=== PATIENT | male | born 2005 | race Hispanic/Latino ===

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

== ENCOUNTER 2025-02-24 23:11 | Emergency (ER) | payer SELFPAY ==
[~2025-02-24] VITALS: Ht 172.7 cm; Wt 86.2 kg
[2025-02-24 23:13] VITALS: BP 128/73; TEMP 102.5
[2025-02-24] MEDS: ibuPROFEN 400 MG TABLET PO ONE (23:34)
[2025-02-24] MEDS: acetaMINOPHEN 500 MG TABLET PO ONE (23:35)
--- NOTE | 2025-02-24 23:38 | NUR ---
SPOKE WITH RESPIRATORY THEY ARE AWARE OF PENDING NEB TREATMENT IN FAST TRACK EXT [id number]
[2025-02-24 23:47] VITALS: PULSE 111; RESP 18
[2025-02-24] MEDS: IpraTROPium/alBUTERol SULFATE 3 ML SOLUTION IH ONE (23:47)
--- NOTE | 2025-02-24 23:47 | NUR ---
RT BEDSIDE FOR NEB TREATMENT
--- NOTE | 2025-02-25 00:02 | HMCIMG ---
CHEST 1VW HISTORY: Shortness of breath COMPARISON: None FINDINGS: A frontal projection of the chest was obtained. No acute pulmonary infiltrates is seen. The heart is normal in size. Prominent interstitial markings are seen. No evidence of aortic calcification is seen. IMPRESSION: 1. No acute pulmonary infiltrate is seen.
[2025-02-25 00:12] LABS: SARS-CoV-2, RNA, NAAT NEGATIVE SARS CoV-2 (NEGATIVE)
[2025-02-25 00:14] LABS: RAPID GROUP A STREP negative (NEGATIVE)
[2025-02-25 00:20] LABS: INFLUENZA TYPE B Negative For Type B (NEGATIVE)
[2025-02-25 00:25] LABS: INFLUENZA TYPE A Positive For Type A (NEGATIVE)
[2025-02-25] MEDS ORDERED: OSEL75 PO (00:34)
--- NOTE | 2025-02-25 00:34 | ERN ---
General Chief Complaint: Cough Stated Complaint: C/O COUGH,, CHILLS, HEADACHE,SORE THROAT Time Seen by MD: 23:14 Time Seen by Midlevel: 23:14 Source: patient History of Present Illness Initial Comments Patient is a 19-year-old male with a past medical history presenting to the emergency department for evaluation of flu-like symptoms that have been ongoing for three days. Symptoms consist of fever, cough, and a runny nose. No other symptoms Allergies: Coded Allergies: ceftriaxone (Unverified Allergy, Unknown, 09/08/19) Home Meds Active Scripts Oseltamivir Phosphate (Tamiflu) 75 Mg Cap, 75 MG PO BID for 5 Days, #10 CAP Prov:RANDAL SINCLAIR 02/25/25 Past Medical History Past Medical History: Asthma Past Surgical History: None ROS Dictation CONSTITUTIONAL: Negative except for HPI HEAD/FACE: Negative except for HPI EENT: Negative except for HPI RESPIRATORY: Negative except for HPI GASTROINTESTINAL/ABDOMINAL: Negative except for HPI GENITOURINARY: Negative except for HPI MUSCULOSKELETAL: Negative except for HPI INTEGUMENTARY: Negative except for HPI NEUROLOGICAL/PSYCH: Negative except for HPI HEMATOLOGIC/LYMPHATIC: Negative except for HPI All Systems Negative, Except as noted above. 13 point review of systems assessed and all negative except for above. Physical Exam Physical Exam Dictation Vital Signs reviewed General Appearance: Alert, oriented x 3, no acute distress, well developed, nourished. Head and Face: non-traumatic. Eyes: PERRL, pink conjunctivas, eyelid no trauma, anterior chamber with arcus senilis. Ears: Pinnas intact and no signs of trauma or erythema ear canals clear and no discharge TM no erythema Nose: No discharge, no bleeding. Oropharynx: Mouth normal, tongue pink, Erythema to the posterior oropharynx, tonsils no exudates, no abscesses noted, mucous membrane moist Neck: Supple, non-tender, no thyromegaly, no masses, no JVD, no bruits Breast:Deferred Chest:No tenderness, no crepitus, no paradoxical movement, no retractions Lungs:Clear, well-ventilated, symmetric, no rales, no wheezing, no rhonchi, no stridor, good breath sounds bilaterally Heart: Regular rate, regular rhythm, no murmur, no gallops Vascular: no peripheral edema, Abdomen: Soft, positive bowel sounds, nondistended, no guarding, nontender, no rebound, no masses no hepatomegaly, no splenomegaly, no Mckeon's sign, no hernias. Rectal: Deferred Genital: Deferred Neurological: Normal speech, motor function intact, sensory function intact Musculoskeletal: Neck nontender, full range of motion, back nontender, full range of motion, Extremities: nontender, full range of motion Skin: Color pink, dry, no turgor, no rash, no lacerations, no abrasions, no contusions. Lymphatic: Deferred Results Laboratory and Microbiology Lab and Micro Result Laboratory Tests Test 02/24/25 23:16 Influenza Type A Antigen Positive For Type A Influenza Type B Antigen Negative For Type B SARS-CoV-2, RNA, NAAT NEGATIVE SARS CoV-2 Group A Streptococcus Rapid negative (NEGATIVE) Labs Reviewed?: Yes MDM MDM: Differential diagnosis: Pneumonia, viral syndrome, upper respiratory infection There are no social concerns with this patient. Prescription drug management Prescriptions will include: Tamiflu Medical management and examination interpretation discussions were had by me with other qualified healthcare professionals as indicated for the patient's care. ED Course Orders Procedure Category Date Status Time Covid Rna Naat LAB 02/24/25 Complete 23:28 Influenza Type A & B, LAB 02/24/25 Complete Rapid 23:28 Rapid (Group A Strep) LAB 02/24/25 Complete 23:28 Chest 1vw RAD 02/24/25 Resulted 23:28 Ipratropium/Albuterol PHA 02/24/25 Complete Neb (Duoneb) 23:30 Acetaminophen 500mg PHA 02/24/25 Complete Tab (Tylenol 500mg T 23:30 Ibuprofen (Motrin) PHA 02/24/25 Complete 23:30 Current Medications Medications (Trade) Dose Ordered Sig/Christina Route PRN Reason Start Time Stop Time Status Last Admin Dose Admin Acetaminophen (TYLenol 500MG TAB) 1,000 mg ONCE ONCE PO 02/24/25 23:30 02/24/25 23:31 DC 02/24/25 23:35 Albuterol (DUOneb) 1 UDVIAL ONCE ONCE IH 02/24/25 23:30 02/24/25 23:31 DC 02/24/25 23:47 Ibuprofen (moTRIN) 400 mg ONCE ONCE PO 02/24/25 23:30 02/24/25 23:31 DC 02/24/25 23:34 Vital Signs Date Time Temp Pulse Resp B/P (MAP) Pulse Ox O2 Delivery O2 Flow Rate FiO2 02/24/25 23:47 111 18 02/24/25 23:13 102.6 98 20 128/73 97 Room Air [facility] [address] [place] [address] IMAGING REPORT Signed PATIENT: AD LUO MR#: [id number] : 2005 SEX: M AGE: 19 LOCATION: [facility] ORDER 28 STATUS: REG ER REPORT#: [id number] SERVICE 27 REASON: sob/cough/fever r/o pna ORDERING PHYSICIAN: RANDAL SINCLAIR PROCEDURE: CXR1VW - CHEST 1VW CHEST 1VW HISTORY: Shortness of breath COMPARISON: None FINDINGS: A frontal projection of the chest was obtained. No acute pulmonary infiltrates is seen. The heart is normal in size. Prominent interstitial markings are seen. No evidence of aortic calcification is seen. IMPRESSION: 1. No acute pulmonary infiltrate is seen. DICTATED BY: SUSY PETER MD DATE: 02/24/252357 ELECTRONICALLY SIGNED BY: SUSY PETER MD DATE: 02/25/25 0002 DX & DISP Disposition: Discharge Departure Impression: Primary Impression: Influenza A Condition: Stable Scripts Oseltamivir Phosphate (Tamiflu) 75 Mg Cap 75 MG PO BID for 5 Days, #10 CAP Prov: RANDAL SINCLAIR 02/25/25 Additional Instructions: You have tested positive for influenza A. I have given you a prescription for Tamiflu which should help improve your symp toms over the next couple of days. Your chest x-ray does not show any evidence of pneumonia. You may continue with Tylenol and Motrin as needed for fever. Follow up with your primary care doctor in 2-3 days for repeat evaluation. Referrals: BONIFACIO DOSHI (PCP) Time of Disposition: 00:33 I have reviewed the case, and I agree with, Diagnosis and Plan I performed the substantive portion of the visit. I have reviewed and personally made and approve the management plan that is documented in the note by myself or the FLAVIO. I acknowledge for responsibility for the patient's manag ement plan. RANDAL SINCLAIR Feb 25, 2025 00:34
== END 2025-02-25 01:00 | disposition home or self-care (01) ==
LOC: EDH 23:11
DX: J10.1 Influenza due to other identified influenza virus with other respiratory manifestations (principal); J45.909 Unspecified asthma, uncomplicated; Z88.1 Allergy status to other antibiotic agents; Z20.822 Contact with and (suspected) exposure to COVID-19
CPT/HCPCS: 71045; 87635; 87804; 87880; 94640; 99283; 99284